=== PATIENT | male | born 1975 | race Caucasian/White ===

== ENCOUNTER 2020-08-02 18:45 | Inpatient (IN) | payer OTHER ==
[2020-08-02 19:15] VITALS: BMI 25.0
[2020-08-02] MEDS ORDERED: MAGNESIUM CITRATE 300 ML BOTTLE PO PRN (21:20)
[2020-08-02] MEDS ORDERED: MAGNESIUM HYDROX 2400MG/30ML ORAL SUSPENSION 30 ML CUP PO PRN (21:20)
[2020-08-02] MEDS ORDERED: BISMUTH SUBSALICYLATE 524 MG/30 ML PO PRN (21:20)
[2020-08-02] MEDS ORDERED: DICYCLOMINE HCL 10 MG CAPSULE PO PRN (21:20)
[2020-08-02] MEDS ORDERED: guaiFENesin 200 MG/10 ML 10 ML UNIT-DOSE CUPS PO PRN (21:20)
[2020-08-02] MEDS ORDERED: ACETAMINOPHEN 325 MG TABLET (FP) PO PRN ×2 (21:20)
[2020-08-02] MEDS ORDERED: ONDANSETRON *ODT* 4 MG TABLET SL PRN (21:20)
[2020-08-02] MEDS ORDERED: MENTHOL/PHENOL 1 EACH UD MM PRN (21:20)
[2020-08-02] MEDS ORDERED: P-EPHED 60MG/TRIPROLIDI 2.5MG TABLET PO PRN (21:20)
[2020-08-02] MEDS ORDERED: MAG HYDROX/AL HYDROX/SIMETH 30 ML UNIT-DOSE CUP PO PRN (21:20)
[2020-08-03] MEDS: MELATONIN 5 MG TABLETS PO SCH ×2 (00:08→22:13)
[2020-08-03] MEDS: THIAMINE HCL 100 MG TABLET (FP) PO SCH ×2 (00:09→22:12)
[2020-08-03] MEDS ORDERED: diazePAM 5 MG TABLET PO PRN (08:33)
[2020-08-03] MEDS: diazePAM 5 MG TABLET PO SCH ×3 (10:38→22:12)
[2020-08-03] MEDS: PRENATAL VITAMINS W/ FOLIC ACID TABLET (FP) PO SCH (10:38)
[2020-08-03 11:16] LABS: CALCIUM 8.9 mg/dL (8.5-10.1)
[2020-08-03 11:17] LABS: ALBUMIN 3.7 g/dl (3.4-5.0); BLOOD UREA NITROGEN 15.4 mg/dL (7-18)
[2020-08-03 11:20] LABS: CREATININE 0.9 mg/dL (0.55-1.3)
[2020-08-03 11:21] LABS: BILIRUBIN,TOTAL 0.3 mg/dL (0.2-1)
[2020-08-03 11:22] LABS: TOT PROT 7.1 g/dl (6.4-8.2)
[2020-08-03 11:28] LABS: HEMATOCRIT 37.7 % (35.4-49); HEMOGLOBIN 12.7 GM/dL (11.7-16.9); MCH 32.8 pg (25.7-33.7); MCHC 33.8 g/dl (32.0-35.9); MEAN CELL VOLUME 97.1 fl (80-96); MEAN PLT VOLUME 7.8 fl (7.5-11.1); PLATELET COUNT 804 K/MM3 (134-434); RBC 3.88 M/mm3 (4.00-5.60); RDW 14.8 % (11.9-15.9); WHITE BLOOD COUNT 8.1 K/mm3 (4.0-10.0)
[2020-08-04] MEDS: diazePAM 5 MG TABLET PO SCH ×4 (05:43→22:14)
[2020-08-04] MEDS: hydrOXYzine PAMOATE 25 MG CAPSULE (FP) PO PRN (10:11)
[2020-08-04] MEDS: PRENATAL VITAMINS W/ FOLIC ACID TABLET (FP) PO SCH (10:11)
[2020-08-04] MEDS: IBUPROFEN 400 MG TABLET (FP) PO PRN (10:13)
[2020-08-04] MEDS: METHOCARBAMOL 500 MG TABLET PO PRN ×2 (10:13→22:16)
[2020-08-04] MEDS: THIAMINE HCL 100 MG TABLET (FP) PO SCH (22:14)
[2020-08-04] MEDS: MELATONIN 5 MG TABLETS PO SCH (22:14)
[2020-08-05] MEDS: diazePAM 5 MG TABLET PO SCH ×3 (05:44→22:37)
[2020-08-05] MEDS: IBUPROFEN 400 MG TABLET (FP) PO PRN (05:45)
[2020-08-05] MEDS: METHOCARBAMOL 500 MG TABLET PO PRN ×2 (10:42→22:37)
[2020-08-05] MEDS: hydrOXYzine PAMOATE 25 MG CAPSULE (FP) PO PRN ×2 (10:42→22:37)
[2020-08-05] MEDS: PRENATAL VITAMINS W/ FOLIC ACID TABLET (FP) PO SCH (10:42)
[2020-08-05] MEDS: THIAMINE HCL 100 MG TABLET (FP) PO SCH (22:37)
[2020-08-05] MEDS: MELATONIN 5 MG TABLETS PO SCH (22:37)
[2020-08-06] MEDS: diazePAM 5 MG TABLET PO SCH ×2 (06:07→17:52)
[2020-08-06] MEDS: PRENATAL VITAMINS W/ FOLIC ACID TABLET (FP) PO SCH (10:05)
[2020-08-06] MEDS: METHOCARBAMOL 500 MG TABLET PO PRN ×2 (10:06→17:55)
[2020-08-06] MEDS: THIAMINE HCL 100 MG TABLET (FP) PO SCH (22:17)
[2020-08-06] MEDS: MELATONIN 5 MG TABLETS PO SCH (22:17)
[2020-08-07] MEDS ORDERED: diazePAM 5 MG TABLET PO ONE (06:00)
[2020-08-07 09:33] VITALS: BP 121/75; PULSE 75; TEMP 98.3
[2020-08-07] MEDS: PRENATAL VITAMINS W/ FOLIC ACID TABLET (FP) PO SCH (10:00)
== END 2020-08-07 10:19 | disposition home or self-care (01) | DRG 774 ==
LOC: YASAS 18:45 → Y6N 22:05
PROVIDERS: ADMIT Allergy & Immunology; ATTEND Allergy & Immunology
PROC: HZ2ZZZZ Detoxification Services for Substance Abuse Treatment (ICD-10-PCS; principal; 2020-08-02)
DX: F10.230 Alcohol dependence with withdrawal, uncomplicated (principal); F14.20 Cocaine dependence, uncomplicated; F19.24 Other psychoactive substance dependence with psychoactive substance-induced mood disorder; F19.282 Other psychoactive substance dependence with psychoactive substance-induced sleep disorder; R45.89 Other symptoms and signs involving emotional state; R63.8 Other symptoms and signs concerning food and fluid intake; Z87.891 Personal history of nicotine dependence; Z98.890 Other specified postprocedural states
CPT/HCPCS: 36415; 80053; 85027; 86780; 93005; 93010; C9803; U0003; U0005